=== PATIENT | female | born 1985 | race Caucasian/White ===

== ENCOUNTER 2020-12-28 16:59 | Emergency (ER) | payer OTHER, MEDICAID ==
[~2020-12-28] VITALS: Ht 167.7 cm; Wt 138.8 kg
[2020-12-28 17:19] LABS: BACTERIA,URINE TRACE /HPF; BILIRUBIN,URINE NEGATIVE (NEGATIVE); CLARITY,URINE CLEAR; COLOR,URINE YELLOW; GLUCOSE, URINE (UA) 3+ (NEGATIVE); KETONES,URINE NEGATIVE (NEGATIVE); LEUKOCYTE ESTERASE ,URINE TRACE (NEGATIVE); NITRITE,URINE NEGATIVE (NEGATIVE); PH,URINE 5.5 (5-9); PROTEIN,URINE NEGATIVE (NEGATIVE); RBC,URINE 0-2 /HPF
[2020-12-28] MEDS ORDERED: NS IV 1000 ML 1,000 ML IV STA (17:28)
[2020-12-28] MEDS ORDERED: inSUlin (REGULAR) HUMAN 1 UNIT/0.01 ML (CHARGE PER UNIT) SC STA (17:28)
[2020-12-28] MEDS ORDERED: ONDANSETRON 4 MG/2 ML (SDV) Z0FRAN IVP STA (17:28)
[2020-12-28 17:32] LABS: BASOPHILS # (AUTO) 0.1 10^3/uL (0.0-0.1); BASOPHILS % (AUTO) 1 % (0-10); EOSINOPHILS # (AUTO) 0.4 10^3/uL (0.0-0.3); EOSINOPHILS % (AUTO) 3 % (0-10); HEMATOCRIT 42 % (35-52); HEMOGLOBIN 14.9 G/DL (11.5-16.0); LYMPHOCYTES # (AUTO) 4.5 X 10^3 (1.0-4.0); LYMPHOCYTES % (AUTO) 28 % (12-44); MEAN CORPUSCULAR HEMOGLOBIN 28 PG (25-34); MEAN CORPUSCULAR HGB CONC 36 G/DL (32-36); MEAN CORPUSCULAR VOLUME 79 FL (80-99); MONOCYTES # (AUTO) 0.8 X 10^3 (0.0-1.0); MONOCYTES % (AUTO) 5 % (0-12); NEUTROPHILS # (AUTO) 10.3 X 10^3 (1.8-7.8); NEUTROPHILS % (AUTO) 64 % (42-75); PLATELET COUNT 287 10^3/uL (130-400); WHITE BLOOD COUNT 16.1 10^3/uL (4.3-11.0)
--- NOTE | 2020-12-28 17:35 | ED General ---
General Chief Complaint: Glucose Problems Stated Complaint: HIGH BLOOD SUGAR Nursing Triage Note: Patient reports she is diabetic, reports her blood sugars have been higher than normal for several weeks. She reports blood sugars have sometimes been unreadable by her meter, readable as high as 569. She reports she has been feeling more fatigued and dizzy lately. She reports that she takes metformin to control her blood sugars. Nursing Sepsis Screen: No Definite Risk Source of Information: Patient History of Present Illness Date Seen by Provider: Dec 28, 2020 Time Seen by Provider: 17:01 Initial Comments 35 yo female presents to ED with complaints of elevated glucose 400-500 range at home for last few weeks. She has been weak, dizzy and fatigued. she also is coughing more recently. She is urinating more but states she is drinking more fluids. She has been having nausea with indigestion for last few months as well. She takes metformin 500 mg twice a day but used to be on insulin until about 5 years ago when she went to detention and they changed her to metformin. She was having a sugar up over 500 this afternoon and drank a lot of water and waited a few hours then came to the ED. On arrival to ED she has glucose of 278. She denies fever, chills, diarrhea, dysuria. She states that she has not had gas money to make it to moving to see her regular provider Gay Katz Associated Systoms: No Chest Pain; Cough; No Diaphoresis, No Fever/Chills, No Headaches; Loss of Appetite, Malaise, Nausea/Vomiting (Nausea but no vomiting); No Rash, No Seizure, No Shortness of Air, No Syncope; Weakness (Generalized) Allergies and Home Medications Allergies Coded Allergies: No Known Drug Allergies (Unverified , 12/28/20) Patient Home Medication List Home Medication List Reviewed: Yes Review of Systems Review of Systems Constitutional: No chills; dizziness; No fever; malaise, weakness EENTM: no symptoms reported Respiratory: see HPI Cardiovascular: no symptoms reported Gastrointestinal: see HPI Genitourinary: No dysuria; frequency : No LMP: Dec 14, 2020 Musculoskeletal: joint pain (knee pain from fall recently) Skin: change in color (bruising from fall on her knee) Psychiatric/Neurological: Anxiety, Weakness (general) Hematologic/Lymphatic: Easy Bruising Past Qxnvqaj-Grmhgs-Pufbjv Hx Past Med/Social Hx: Reviewed Nursing Past Med/Soc Hx Patient Social History Alcohol Use: Denies Use Smoking Status: Current Everyday Smoker Type Used: Cigarettes Recent Infectious Disease Expo: No Substance type: Methamphetamine (none recently) Past Medical History Surgeries: Yes Oophorectomy (left with tube when 16 yo from cyst and benign tumor), Orthopedic (right hand) Respiratory: No Cardiac: Yes Hypertension Neurological: No Reproductive Disorders: No Genitourinary: No Gastrointestinal: No Musculoskeletal: No Endocrine: Yes Diabetes, Non-Insulin dep HEENT: No Cancer: No Psychosocial: Yes Sleep Difficulties, Anxiety, Depression Integumentary: No Physical Exam Vital Signs Vital Signs - First Documented 12/28/20 17:01 Temp 36.4 Pulse 88 Resp 20 B/P (MAP) 160/94 (116) Pulse Ox 97 O2 Delivery Room Air Capillary Refill : Less Than 3 Seconds Height, Weight, BMI Height: '" Weight: lbs. oz. kg; 49.00 BMI Method: General Appearance: No Apparent Distress, Obese HEENT: PERRL/EOMI, Pharynx Normal Neck: Full Range of Motion, Non Tender, Supple Respiratory: Chest Non Tender, Lungs Clear, Normal Breath Sounds, No Accessory Muscle Use, No Respiratory Distress Cardiovascular: Regular Rate, Rhythm, Normal Peripheral Pulses Gastrointestinal: Normal Bowel Sounds, No Pulsatile Mass, Soft; No Distended, No Guarding, No Rebound; Tenderness (diffuse tenderness to palpation without reboung or guarding) Rectal: Deferred Extremity: Normal Capillary Refill, No Pedal Edema Neurologic/Psychiatric: Alert, Oriented x3, lighthouse keeper II-XII Norm as Tested Skin: Normal Color, Warm/Dry Progress/Results/Core Measures Suspected Sepsis Recent Fever Within 48 Hours: No Infection Criteria Present: None New/Unexplained Altered Menta: No Sepsis Screen: No Definite Risk SIRS Temperature: Pulse: 88 Respiratory Rate: 20 Laboratory Tests 12/28/20 17:25: White Blood Count 16.1H Blood Pressure 160 /94 Mean: 116 Laboratory Tests 12/28/20 17:25: Creatinine 0.60, Platelet Count 287, Total Bilirubin 0.3 Results/Orders Lab Results Laboratory Tests Test 12/28/20 17:07 12/28/20 17:14 12/28/20 17:25 12/28/20 18:28 Range/Units Urine Color YELLOW Urine Clarity CLEAR Urine pH 5.5 5-9 Urine Specific [place] 1.015 L 1.016-1.022 Urine Protein NEGATIVE NEGATIVE Urine Glucose (UA) 3+ H NEGATIVE Urine Ketones NEGATIVE NEGATIVE Urine Nitrite NEGATIVE NEGATIVE Urine Bilirubin NEGATIVE NEGATIVE Urine Urobilinogen 0.2 < = 1.0 MG/DL Urine Leukocyte Esterase TRACE H NEGATIVE Urine RBC (Auto) NEGATIVE NEGATIVE Urine RBC 0-2 /HPF Urine WBC 2-5 /HPF Urine Squamous Epithelial Cells 2-5 /HPF Urine Crystals NONE /LPF Urine Bacteria TRACE /HPF Urine Casts NONE /LPF Urine Mucus NEGATIVE /LPF Urine Culture Indicated YES Glucometer 278 H 201 H 70-110 MG/DL White Blood Count 16.1 H 4.3-11.0 10^3/uL Red Blood Count 5.32 4.35-5.85 10^6/uL Hemoglobin 14.9 11.5-16.0 G/DL Hematocrit 42 35-52 % Mean Corpuscular Volume 79 L 80-99 FL Mean Corpuscular Hemoglobin 28 25-34 PG Mean Corpuscular Hemoglobin Concent 36 32-36 G/DL Red Cell Distribution Width 11.9 10.0-14.5 % Platelet Count 287 130-400 10^3/uL Mean Platelet Volume 11.0 H 7.4-10.4 FL Immature Granulocyte % (Auto) 1 % Neutrophils (%) (Auto) 64 42-75 % Lymphocytes (%) (Auto) 28 12-44 % Monocytes (%) (Auto) 5 0-12 % Eosinophils (%) (Auto) 3 0-10 % Basophils (%) (Auto) 1 0-10 % Neutrophils # (Auto) 10.3 H 1.8-7.8 X 10^3 Lymphocytes # (Auto) 4.5 H 1.0-4.0 X 10^3 Monocytes # (Auto) 0.8 0.0-1.0 X 10^3 Eosinophils # (Auto) 0.4 H 0.0-0.3 10^3/uL Basophils # (Auto) 0.1 0.0-0.1 10^3/uL Immature Granulocyte # (Auto) 0.1 0.0-0.1 10^3/uL Neutrophils % (Manual) 68 % Lymphocytes % (Manual) 27 % Monocytes % (Manual) 3 % Eosinophils % (Manual) 2 % Sodium Level 131 L 135-145 MMOL/L Potassium Level 4.3 3.6-5.0 MMOL/L Chloride Level 96 L 98-107 MMOL/L Carbon Dioxide Level 25 21-32 MMOL/L Anion Gap 10 5-14 MMOL/L Blood Urea Nitrogen 18 7-18 MG/DL Creatinine 0.60 0.60-1.30 MG/DL Estimat Glomerular Filtration Rate > 60 BUN/Creatinine Ratio 30 Glucose Level 280 H 70-105 MG/DL Calcium Level 9.9 8.5-10.1 MG/DL Corrected Calcium 9.7 8.5-10.1 MG/DL Total Bilirubin 0.3 0.1-1.0 MG/DL Aspartate Amino Transf (AST/SGOT) 15 5-34 U/L Alanine Aminotransferase (ALT/SGPT) 16 0-55 U/L Alkaline Phosphatase 92 40-136 U/L Total Protein 7.0 6.4-8.2 GM/DL Albumin 4.2 3.2-4.5 GM/DL Lipase 44 8-78 U/L My Orders Orders - EARNESTINE TINEO MD Comprehensive Metabolic Panel (12/28/20 17:03) Lipase (12/28/20 17:03) Ua Culture If Indicated (12/28/20 17:03) Ed Iv/Invasive Line Start (12/28/20 17:03) Cbc With Automated Diff (12/28/20 17:03) Accucheck Stat ONCE (12/28/20 17:03) Urine Bedside (12/28/20 17:03) Urine Culture (12/28/20 17:07) Ns Iv 1000 Ml (Sodium Chloride 0.9%) (12/28/20 17:28) Ondansetron Injection (Zofran Injectio (12/28/20 17:28) Insulin (Regular) Human (Novolin R (Per (12/28/20 17:28) Chest Pa/Lat (2 View) (12/28/20 17:29) Manual Differential (12/28/20 17:25) Accucheck Stat ONCE (12/28/20 18:15) Vital Signs/I&O 12/28/20 12/28/20 17:01 18:29 Temp 36.4 Pulse 88 83 Resp 20 18 B/P (MAP) 160/94 (116) 128/75 Pulse Ox 97 98 O2 Delivery Room Air Room Air Capillary Refill : Less Than 3 Seconds Blood Pressure Mean: 116 Progress Note #1: Progress Note Accucheck on arrival is 278. Will check labs with urine and with her having cough add on a chest xray. Give IVF for hydration, Zofran for nausea, Regular insulin at just over 0.1 units/kg or 15 units subcutaneous. Advised patient that she likely will need to follow-up with her doctor to get better control of her diabetes and unless she has signs of ketoacidosis or an infection requiring admission to the hospital she would be discharged with adjustment to her Metformin from here and counseling to see primary about maybe starting insulin or what other treatments they want to use to better control her diabetes. Differential diagnosis includes diabetic ketoacidosis, hyperglycemia hyper osmolar episode, pneumonia, UTI, gastritis with reflux, gastroparesis due to hyperglycemia. Progress Note #2: Progress Note UA dilute and shows Glucose but no ketones. No definite infection on the urinalysis either. CBC shows an elevated white blood cell count at 16.1 thousand. She has stable chemistry other than elevated glucose. Her anion gap and CO2 are normal. No evidence of diabetic ketoacidosis. Recheck of glucose at 201. Counseled patient to increase Metformin to 1000 mg twice daily. Stressed importance of follow-up with clinic for improved management of her diabetes. She states that her senior administrative services officer wants her to be living in [place] again by 21 January. I did give her information for the [facility] if she was going to be following up locally. Diagnostic Imaging Diagonstic Imaging: Xray Plain Films/CT/US/NM/MRI: chest Comments NAME: BENEDICTO LOPEZ [facility] REC#: [id number] PT STATUS: REG ER : 1985 PHYSICIAN: EARNESTINE TINEO MD ADMIT DATE: 12/28/20/ER FS Draft Date of Exam:12/28/20 CHEST PA/LAT (2 VIEW) INDICATION: cough, short of breath. TECHNIQUE: Two view chest 5:35 PM CORRELATION STUDY: None FINDINGS: The heart size, mediastinal configuration and pulmonary vasculature are within normal limits. The the right diaphragm is slightly asymmetrically elevated. The lungs are clear with no consolidating infiltrate. There is no significant pleural effusion or pneumothorax. Visualized osseous structures are unremarkable. IMPRESSION: 1. Negative for acute abnormality of the chest. Dictated on workstation # [id number] Dict: 12/28/201807 Trans: 12/28/201807 DO [id number] Interpreted by: WILIAM BERNAL DO Electronically signed by: Departure Impression Primary Impression: Hyperglycemia due to diabetes mellitus Disposition: HOME, SELF-CARE Condition: Stable Departure-Patient Inst. Decision time for Depature: 18:14 Referrals: NO,LOCAL PHYSICIAN (PCP) Primary Care Physician Patient Instructions: How to Prevent High Blood Sugar Emergencies in Diabetes, Diabetes and Diet, Diabetes Type 2 (DC), Diabetes Type 1, Adult (DC), Hyperglycemia, Adult Add. Discharge Instructions: Increase your Metformin to 1000 mg (2 tabs) twice a day until you can check with clinic You may need additional medicine to help control your sugars and they have additional medicines other than just insulin to help with Diabetes. See your provider about this to see what can be done to help. If you are going to be in [facility] for a while you could establish care with a provider at [facility] by calling [phone]. All discharge instructions reviewed with patient and/or family. Voiced understanding. EARNESTINE TINEO MD Dec 28, 2020 17:35
[2020-12-28 17:49] LABS: ALANINE AMINOTRANSFERASE 16 U/L (0-55); ALBUMIN 4.2 GM/DL (3.2-4.5); ALKALINE PHOSPHATASE 92 U/L (40-136); BILIRUBIN,TOTAL 0.3 MG/DL (0.1-1.0); BUN/CREATININE RATIO 30; CALCIUM 9.9 MG/DL (8.5-10.1); CARBON DIOXIDE 25 MMOL/L (21-32); CHLORIDE 96 MMOL/L (98-107); GFR ESTIMATED > 60; GLUCOSE 280 MG/DL (70-105); LIPASE 44 U/L (8-78); POTASSIUM 4.3 MMOL/L (3.6-5.0); SODIUM 131 MMOL/L (135-145)
[2020-12-28 18:06] LABS: EOSINOPHILS % (MANUAL) 2 %; LYMPHOCYTES % (MANUAL) 27 %; MONOCYTES % (MANUAL) 3 %; NEUTROPHILS % (MANUAL) 68 %
--- NOTE | 2020-12-28 18:09 | Diagnostic Imaging Report ---
INDICATION: cough, short of breath. TECHNIQUE: Two view chest 5:35 PM CORRELATION STUDY: None FINDINGS: The heart size, mediastinal configuration and pulmonary vasculature are within normal limits. The the right diaphragm is slightly asymmetrically elevated. The lungs are clear with no consolidating infiltrate. There is no significant pleural effusion or pneumothorax. Visualized osseous structures are unremarkable. IMPRESSION: 1. Negative for acute abnormality of the chest. Dictated by: Dictated on workstation # [id number]
[2020-12-28 18:29] VITALS: BP 128/75
== END 2020-12-28 18:34 | disposition home or self-care (01) ==
LOC: ER FS 17:03
DX: E11.65 Type 2 diabetes mellitus with hyperglycemia (principal); R11.0 Nausea; R05 Cough; I10 Essential (primary) hypertension; F17.210 Nicotine dependence, cigarettes, uncomplicated; Z86.018 Personal history of other benign neoplasm; Z79.84 Long term (current) use of oral hypoglycemic drugs
CPT/HCPCS: 36415; 71046; 80053; 81000; 82962; 83690; 84703; 85007; 85027; 87088

== ENCOUNTER 2021-03-07 16:51 | Emergency (ER) | payer OTHER, MEDICAID ==
[2021-03-07 17:02] VITALS: BP 121/59
--- NOTE | 2021-03-07 17:17 | ED General ---
General Chief Complaint: Cough/Cold/Flu Symptoms Stated Complaint: COUGH | SOB | DIZZINESS Source of Information: Patient History of Present Illness Date Seen by Provider: March 07, 2021 Time Seen by Provider: 16:53 Initial Comments 35 yo female presenting with complaint of cough, subjective fever/chills, short of breath, body aches since Tuesday night. She had Zoey Covid Vaccine on TuesdayMarch 02 and is not sure if that is part of her issue. She smokes at least half pack a day usually but in the last 2 days has only been able to smoke a couple of cigarettes a day. She states that she is coughing so hard that she is causing herself to have accidents and urinated on herself. She has decreased sense of taste and smell since Tuesday. She is coughing up a thick white sputum. She denies any nausea, vomiting, diarrhea, pain with urination. Since her last visit to the emergency department in December she has been placed on a new diabetic medication which has helped to lower her sugars. She reports that she currently is homeless and that the homeless coalition has put her up and her boyfriend up at [facility]. Associated Systoms: No Chest Pain; Cough; No Diaphoresis; Fever/Chills (subjective); No Headaches; Loss of Appetite, Malaise; No Nausea/Vomiting, No Rash, No Seizure; Shortness of Air; No Syncope Allergies and Home Medications Allergies Coded Allergies: No Known Drug Allergies (Unverified , 12/28/20) Patient Home Medication List Home Medication List Reviewed: Yes Review of Systems Review of Systems Constitutional: see HPI EENTM: hoarseness, nose congestion; No ear discharge, No ear pain Respiratory: see HPI Cardiovascular: No chest pain Gastrointestinal: no symptoms reported Genitourinary: see HPI Musculoskeletal: see HPI Skin: No rash Psychiatric/Neurological: Weakness (general weakness and malaise) Past Flttxbn-Ucdmac-Dwkiui Hx Past Med/Social Hx: Reviewed Nursing Past Med/Soc Hx Patient Social History Type Used: Cigarettes 2nd Hand Smoke Exposure: No Recent Hopitalizations: No Seasonal Allergies Seasonal Allergies: No Past Medical History Surgeries: Yes Oophorectomy, Orthopedic Respiratory: No Cardiac: Yes Hypertension Neurological: No Reproductive Disorders: No Genitourinary: No Gastrointestinal: No Musculoskeletal: No Endocrine: Yes Diabetes, Non-Insulin dep HEENT: No Cancer: No Psychosocial: Yes Sleep Difficulties, Anxiety, Depression Integumentary: No Physical Exam Vital Signs Capillary Refill : Height, Weight, BMI Height: '" Weight: lbs. oz. kg; 49.00 BMI Method: General Appearance: No Apparent Distress, Obese HEENT: PERRL/EOMI, Pharynx Normal Neck: Full Range of Motion, Normal Inspection, Non Tender, Supple Respiratory: Chest Non Tender, Lungs Clear, Normal Breath Sounds, No Accessory Muscle Use, No Respiratory Distress Cardiovascular: Regular Rate, Rhythm, Normal Peripheral Pulses Gastrointestinal: No Pulsatile Mass, Non Tender, Soft Rectal: Deferred Extremity: Normal Capillary Refill, No Pedal Edema Neurologic/Psychiatric: Alert, Oriented x3, supervisor riveting II-XII Norm as Tested Skin: Normal Color, Warm/Dry; No Rash Progress/Results/Core Measures Suspected Sepsis SIRS Temperature: Pulse: Respiratory Rate: Blood Pressure / Mean: Results/Orders My Orders Vital Signs/I&O Capillary Refill : Progress Note : Progress Note discussed with patient ordering labs, chest xray, blood cultures and could check Covid swab as send out. She was agreeable to testing and trying to figure out what was making her feel so bad. Reassured pt that vital signs all looked good with Oxygen saturation 100% on room air and normal temperature, blood pressure and heart rate. She had complained of cough previously in December so already have a chest xray for comparison as well. As I was entering the orders for her tests she took a call from her boyfriend and said something about the police and that she had to leave right away. She was advised that she would have to check back in as a new account if she returns. She said Ok and walked out of the department with a hurried gate without difficulty, although she said she needed the nurses to bring her to the room because she was too weak and short of breath to walk back to a room. Departure Impression Primary Impression: Left against medical advice Additional Impressions: Shortness of breath Cough in adult Disposition: 07 AGAINST MEDICAL ADVICE Condition: Against Medical Advice Departure-Patient Inst. Referrals: NO,LOCAL PHYSICIAN (PCP/Family) Primary Care Physician EARNESTINE TINEO MD March 07, 2021 17:17
== END 2021-03-07 17:16 | disposition left against medical advice (07) ==
LOC: EDUNIT# 16:51 → ER FS 16:54
DX: R05 Cough (principal); R06.02 Shortness of breath; R53.1 Weakness; I10 Essential (primary) hypertension; E11.9 Type 2 diabetes mellitus without complications; E66.9 Obesity, unspecified; F17.210 Nicotine dependence, cigarettes, uncomplicated; Z59.0 Homelessness; Z68.42 Body mass index [BMI] 45.0-49.9, adult
CPT/HCPCS: 99282